=== PATIENT | female | born 1950 | race African-American/Black ===

== ENCOUNTER 2017-02-06 19:56 | Emergency (ER) | payer MEDICARE, OTHER ==
--- NOTE | ~2017-02-06 | CR72 ---
[facility] A Service of [facility] RADIOLOGY TEXT RESULTS PATIENT: SHARMAINE BAZZI LOCATION: [facility] : 51 UNIT #: [id number] AGE: [address]: Mari Kent MD SEX: F ORDER DR: [id number] [facility] [address] [facility]. [place], [place] [address] [id number] MR#: [id number] #: [id number] NAME: SHARMAINE BAZZI : 1950 SEX: F STUDY DATE/TIME: 02/06/2017 22:23 UNIT: [facility] ROOM: STUDY DESCRIPTION: CR Chest Single View Portable Attending Physician: Mari Kent M.D. Ordering Physician: Tj Blackman M.D. Primary Care Physician: No Primary Care Physician MEDICAL IMAGING REPORT This report is preliminary unless electronic signature is present EXAM Single view chest INDICATIONS Shortness of air for 4 days. FINDINGS Single portable AP view of the chest compared to 10/07/2016 and 09/14/2016. Heart and mediastinal contours are normal. There is a calcified granuloma in the left mid lung. No pleural effusion. IMPRESSION No acute cardiopulmonary findings. Dictated by... Vinayak Hargrove M.D. THIS IS AN ELECTRONICALLY VERIFIED REPORT Vinayak Hargrove M.D. at 02/07/2017 11:15 PM RPKyle/jerilyn TD: 02/07/2017 03:32 JOB #: [id number] MEDICAL IMAGING REPORT Page 1 of 1 COPY
[~2017-02-06 19:56] MED LIST: ACETAMINOPHEN PO; ACETAMINOPHEN650 M4 PO; ADVAIR; ADVAIR 100-501 EAC1 IH; ADVAIR 100-501 EACH IH; ADVAIR 250-501 EACH IH; ADVAIR 500-501 EACH IH; ADVAIR 5001 DISK W/1 IH; ADVAIR INH; ADVIL200 M2 PO; AEROBID7 GM; ALBUTEROL 0.5ML INH; ALBUTEROL MININEB NEB; ALBUTEROL SULFATE; ALBUTEROL0.63 MG/3 IH; ALBUTEROL0.83 MG/ML IH; ALBUTEROL17 G1 IH; ALBUTEROL17 GM INH; ALBUTEROL17 GM NEB; ALBUTEROL2.5 MG/0.5 IH; ALBUTEROL20 ml INH; AMLODIPINE BESY10 MG PO; ASPIRIN EC81 M1 PO; ASPIRIN81 M2 PO; ASPIRIN81 MG PO; ATARAX PO; ATORVASTATIN CA10 MG PO; AUGMENTIN875 M1 PO; AUGMENTIN875 MG PO; AVALOX PO; AZITHROMYCIN250 MG PO; AZITHROMYCIN500 MG PO; BACTRIM DS TABL1 TA1 PO; BAYER CHEWABLE81 MG PO; BENZONATATE PO; BLOOD PRESSURE PILL; BREO ELLIPTA I1 EACH INH; CARDIZEM CD PO; CARDIZEM CD180 M2 PO; CARDIZEM CD240 M1 PO; CARDIZEM CD240 M2 PO; CARDIZEM CD240 MG PO; CLARITIN10 M2 PO; COMBIVENT INH14.7 G1 IH; COMBIVENT INH14.7 GM; COMBIVENT INH14.7 GM INH; COMBIVENT MININEB INH; COMBIVENT RESPIM4 GM IH; COMBIVENT U/D3 M2 INH; COMBIVENT U/D3 ML INH; COMBIVENT14.7 GM IH; COMBIVENT14.7 GM INH; DALIRESP PO; DELTASONE20 MG PO; DILTIAZEM 24HR120 MG PO; DILTIAZEM 24HR180 M1 PO; DILTIAZEM 24HR180 MG PO; DOXYCYCLINE HY100 M1 PO; DOXYCYCLINE PO; DOXYCYCLINE150 MG PO; DUONEB 2.5-0.5 M3 ML; DUONEB 2.5-0.5 M3 ML NEB; FLEXERIL PO; FLEXERIL10 M1 PO; FLONASE 0.05% N16 G1; FLONASE 0.05% N16 GM NS; FLONASE16 GM; FLORASTOR250 M1 PO; FLOVENT HFA12 GM; FLOVENT HFA12 GM INH; GLUCOPHAGE500 MG PO; HUMIBID-LA600 MG PO; HYDROCHLOROTH12.5 M1 PO; IBUPROFEN400 MG PO; IPRATR-ALBUTEROL3 ML INH; KROGER PHARMACY; LASIX20 MG PO; LEVAQUIN PO; LEVAQUIN750 M1 PO; LEVAQUIN750 MG PO; LIPITOR PO; LISINOPRIL PO; LISINOPRIL10 MG PO; LISINOPRIL20 MG PO; LISINOPRIL30 MG PO; LORATADINE PO; LORTAB 10-5001 EACH PO; LORTAB 5/500 TA1 TA1 PO; MEDROL DOSEPAK4 MG DOB; MEDROL DOSEPAK4 MG PO; MEDROL PO; MEDROL4 MG/DOSE- PO; METFORMIN HCL500 M1 PO; MOBIC PO; MORGIDOX100 MG PO; MOTRIN400 MG PO; MOTRIN600 MG PO; NILSTAT1 ML PO; NORCO 5/325 TAB1 TAB PO; NORVASC PO; NORVASC10 MG PO; ORAPRED ODT10 MG PO; ORUDIS75 M1 PO; PHARMACY; PHENERGAN DM1 ML PO; POLYTRIM EYE DR10 ML OP; PREDNISOLO15 MG/5 M1 PO; PREDNISOLONE5 MG PO; PREDNISONE PO; PREDNISONE10 MG PO; PREDNISONE10 MG/DOSE PO; PREDNISONE50 MG PO; PRILOSEC PO; PRINIVIL20 M1 PO; PROVENTIL INH0.5 ML HHN; ROBITUSSIN A-C S5 ML PO; SALINE NOSE SPR45 M1 NS; SINGULAIR PO; SKELAXIN PO; SPIRIVA HANDIHALER; SPIRIVA18 MCG INH; STERAPRED5 MG/DOSE1 PO; SYMBICORT 16010.2 GM INH; TAMIFLU75 M1 PO; TESSALON200 MG PO; TRIAMCINOLONE AC1 GM EXT; ULTRAM PO; VIBRAMYCIN100 M1 PO; VICODIN 5/1 TAB 5/50 PO; VICODIN 5/500 T1 TAB PO; VICODIN PO; VOLTAREN75 MG PO; Z-PACK PO; ZITHROMAX PO; ZITHROMAX1 G/PKT PO; ZITHROMAX500 MG PO; [UNRECOGNIZED DRUG - OTHER]; [UNRECOGNIZED DRUG - REMARK]
[2017-02-06 21:56] LABS: BASOPHIL# 0.1 X10e3 (0-0.3); EOSINOPHIL# 0.3 X10e3 (0-0.7); EOSINOPHIL% 4.9 % (0.0-7.0); HEMATOCRIT 45.7 % (35.0-45.0); HEMOGLOBIN 14.6 gm/dL (12.0-16.0); LYMPHOCYTE# 2.3 X10e3 (1.0-3.5); MEAN CELL VOLUME 95.3 FL (83-96); MEAN CORPUSCULAR HEMOGLOBIN 30.5 PG (28-34); MEAN PLATELET VOLUME 9.3 FL (6.5-11.5); MONOCYTE# 0.7 X10e3 (0-1.0); MONOCYTE% 9.8 % (3.0-12.0); NEUTROPHIL# 3.5 X10e3 (1.5-7.1); NEUTROPHIL% 51.3 % (40-75); PLATELET COUNT 265 X10e3 (140-420); RED CELL DISTRIBUTION WIDTH 13.6 % (11.0-15.5); WHITE BLOOD COUNT 6.9 X10e3 (4.0-10.5)
[2017-02-06 21:57] LABS: DIFF IND NO
[2017-02-06 22:01] LABS: POC - CKMB <1.0 ng/mL (0.0-7.9); POC - TROPONIN <0.05 ng/mL (<=0.05)
[2017-02-06 22:19] LABS: BILIRUBIN, DIRECT 0.2 mg/dL (0.0-0.2); BILIRUBIN,INDIRECT 0.1 mg/dL (0.0-0.9); BILIRUBIN,TOTAL 0.3 mg/dL (0.2-2.0); BUN/CREATININE RATIO 21.11; CALCIUM SERUM 9.3 mg/dL (8.4-10.2); CREATININE SERUM 0.9 mg/dL (0.6-1.4); GLOM FILT RATE Estimated 77.8 mL/min (>60); POTASSIUM 4.4 mmol/L (3.5-5.1); PROTEIN TOTAL SERUM 7.2 g/dL (6.0-8.3)
== END 2017-02-07 02:10 | disposition left against medical advice (07) ==
LOC: CED 19:56
PROVIDERS: Emergency Medicine
DX: Z53.21 Procedure and treatment not carried out due to patient leaving prior to being seen by health care provider (principal)
CPT/HCPCS: 71010; 80048; 80076; 82553; 84484; 85025; 85730

== ENCOUNTER 2017-03-06 06:22 | Inpatient (IN) | payer MEDICARE, OTHER ==
--- NOTE | ~2017-03-06 | CT16 ---
[facility] A Service [facility] RADIOLOGY TEXT RESULTS PATIENT: SHARMAINE BAZZI LOCATION: [place] [address] : 51 UNIT #: [id number] AGE: [address]: Arcenio Reyes MD SEX: F ORDER DR: [id number] [facility] [address] [facility]. [place], [place] [address] [id number] E MR#: [id number] Acc #: [id number] NAME: SHARMAINE BAZZI : 1950 SEX: F STUDY DATE/TIME: 03/06/2017 9:45 UNIT: [facility] ROOM: STUDY DESCRIPTION: CT Angio Chest for PE Attending Physician: Mari Kent M.D. Ordering Physician: Mari Kent M.D. Primary Care Physician: No Primary Care Physician MEDICAL IMAGING REPORT This report is preliminary unless electronic signature is present EXAM CT angio of the chest with contrast, pulmonary embolism protocol. DATE: 03/06/2017 at 09:45 HISTORY Left side chest pain, shortness breath for 2 days. Elevated D-dimer 1015. COPD. Hypertension. Diabetes. COMPARISON CTA chest PE protocol 07/21/2016. PROCEDURE 2 mm axial images through the chest after IV contrast administration. 3-D coronal MIP reformatted images were obtained. FINDINGS The quality of the study is good. There is no pulmonary embolism. There is no thoracic aortic aneurysm or dissection. Heart size is within normal limits. No pericardial effusion, pleural effusion or pleural effusion. Mildly prominent AP window lymph node measuring 1 cm short axis is unchanged from 07/21/2016. Mildly prominent right hilar lymph node measures smaller than on the previous study, 8 mm short axis today, 10 mm previously. Mild centrilobular emphysematous changes are present. Tree-in-bud nodular densities are present within the left upper lobe. There is mild bronchial wall thickening in the bilateral lower lobe. Faint tree-in-bud nodular densities within the medial left lower lobe. No dense lung consolidations. Mild cylindrical bilateral lower lobe and bilateral upper lobe bronchiectasis. [facility] A Service [facility] RADIOLOGY TEXT RESULTS PATIENT: SHARMAINE BAZZI LOCATION: [place] [address] : 51 UNIT #: [id number] AGE: [address]: Arcenio Reyes MD SEX: F ORDER DR: Benign calcified granuloma in the left lower lobe and the left hilum. Left renal cyst. Remainder of the included upper abdominal organs are within normal limits. IMPRESSION 1. Tree-in-bud nodular densities are demonstrated throughout the left lung, greatest in the left upper lobe, favored to represent a small airways infectious - inflammatory change. There is mild cylindrical bronchiectasis and bronchial wall thickening in both lungs. The bronchial wall thickening is greatest in the bilateral lower lobes. Correlate for bronchitis symptoms. 2. Mild centrilobular emphysema. 3. Mildly prominent AP window lymph node is stable since 07/21/16. It is favored to represent benign reactive finding. 4. No pulmonary embolism, aortic aneurysm or aortic dissection. Dictated by... Bonnie Rodriguez M.D. THIS IS AN ELECTRONICALLY VERIFIED REPORT Bonnie Rodriguez M.D. at 03/09/2017 1:22 PM MOSHE/martha TD: 03/06/2017 12:10 JOB #: [id number] MEDICAL IMAGING REPORT Page 1 of 1 COPY
--- NOTE | ~2017-03-06 | EKG ---
PATIENT: SHARMAINE BAZZI UNIT #: [id number] Ventricular Rate: 97 BPM Atrial Rate: 97 BPM P-R Interval: 182 ms QRS Duration: 82 ms Q-T Interval: 352 ms QTC Calculation(Bezet): 447 ms P [place]: 64 degrees Calculated R [place]: 42 degrees Calculated T [place]: 49 degrees Diagnosis Line: Normal sinus rhythm Diagnosis Line: nonspecific ST-T wave changes Diagnosis Line: When compared with ECG of 07-OCT-2016 00:56, Diagnosis Line: No significant change was found Diagnosis Line: Confirmed by STEF PEDERSON MD ([id number]) on Diagnosis Line: 03/06/2017 4:16:09 PM INTERPRETING MD: TORI
--- NOTE | ~2017-03-06 | HP ---
Unit #: [id number] #: [id number] Patient: JULIANA SANCHEZ [id number] [address] [address] [id number] I MR#: [id number] NAME: JULIANA SANCHEZ ROOM: 553 Age: 66 Sex: F Admission Date: 03/06/2017 : 1950 Attending Physician: Arcenio Reyes M.D. Primary Care Physician: Primary Care Physician No HISTORY AND PHYSICAL ADMISSION DIAGNOSES 1. Acute exacerbation of chronic obstructive pulmonary disease. 2. Bronchitis. 3. Hypertension. 4. Chronic pain. 5. Diabetes. HISTORY OF PRESENT ILLNESS Ms. Juliana Sanchez is a 66-year-old female with past medical history of COPD, hypertension, chronic pain and diabetes who comes to the emergency room with the complaints of increasing shortness of air, dyspnea since early this morning. She tells me that it felt like her throat was closing up and she was not able to take a good breath. She was found hypoxemic despite the breathing treatments in the emergency room, therefore, patient is being admitted. She otherwise denies any chest pain, headache, dizziness, syncope, fever, chills, nausea, vomiting, diarrhea, abdominal pain. REVIEW OF SYSTEMS Twelve-point review of systems on this patient is basically negative except as above. PAST MEDICAL HISTORY Significant for: 1. History of COPD. 2. Hypertension. 3. Chronic pain. 4. Diabetes. PAST SURGICAL HISTORY Significant for: 1. Cardiac catheterization in the past. 2. Bilateral knee replacement. 3. Hip surgery. HOME MEDICATIONS Include: 1. Atrovent. 2. Ventolin. 3. Combivent. 4. Singulair. 5. Flonase. 6. Proventil. 7. Zestril. Unit #: [id number] #: [id number] Patient: JULIANA SANCHEZ 8. Aspirin. ALLERGIES 1. Bactrim. 2. Vancomycin. 3. Biaxin. 4. Sulfa drugs. SOCIAL HISTORY Denies any tobacco, alcohol, or illicit drugs. FAMILY HISTORY Unremarkable. PHYSICAL EXAMINATION VITAL SIGNS: BP 160/85, heart rate 84, respirations 20, temperature 97.9. GENERAL: The patient is 66-year-old female in no acute distress. HEENT: Head is atraumatic. Pupils equal, round, reactive to light and accommodation. Extraocular muscles are intact. Oropharynx is clear. NECK: Supple. No mass, no JVD, no bruits. LUNGS: Diminished bilaterally with some mild expiratory wheezing. HEART: S1, S2. No murmurs. ABDOMEN: Soft, nontender, nondistended. LOWER EXTREMITIES: Without any significant cyanosis, clubbing, or edema. NEUROLOGIC: Grossly intact without any focal deficits. DIAGNOSTIC STUDIES LABORATORY: Chemistry unremarkable. Blood glucose was 145. Set of cardiac enzymes negative. Hematology unremarkable. IMAGING: Chest x-ray on admission shows no acute findings. Benign calcified granulomatous changes. CT angio showed tree-in-bud nodular densities, demonstrated throughout the left lung, favored to represent a small airways infection inflammatory changes. Bronchiectasis and bronchial wall thickening. Centrilobular emphysema. ASSESSMENT AND PLAN 1. Acute exacerbation of COPD. Continue bronchodilators, IV steroids, Pulmonary to follow. 2. Questionable bronchitis. Started on IV Levaquin. Will defer to Pulmonology. 3. Hypertension. Resume home Zestril. Consider adding hydrochlorothiazide. 4. History of diabetes in the past. She was not taking any anti-diabetes medicine at home. This is most likely steroid-induced hyperglycemia. Will check hemoglobin A1c. 5. Continue with GI and DVT prophylaxis with Protonix and Lovenox. Dictated by Arcenio Reyes M.D. Unit #: [id number] #: [id number] Patient: JULIANA SANCHEZ OC/stephany TD: 03/06/2017 21:36 JOB #: [id number] HISTORY AND PHYSICAL Page 1 of 1 X Arcenio Reyes MD HISTORY AND PHYSICAL
--- NOTE | ~2017-03-06 | EKG ---
PATIENT: SHARMAINE BAZZI UNIT #: [id number] Ventricular Rate: 98 BPM Atrial Rate: 98 BPM P-R Interval: 174 ms QRS Duration: 78 ms Q-T Interval: 356 ms QTC Calculation(Bezet): 454 ms P [place]: 68 degrees Calculated R [place]: 34 degrees Calculated T [place]: 69 degrees Diagnosis Line: Sinus rhythm with Premature atrial complexes Diagnosis Line: nonspecific ST-T wave changes. Diagnosis Line: Poor baseline Diagnosis Line: No previous ECGs available Diagnosis Line: Confirmed by STEF PEDERSON MD ([id number]) on Diagnosis Line: 03/06/2017 4:15:15 PM INTERPRETING MD: TORI
--- NOTE | ~2017-03-06 | BMI ---
[facility] Nutrition Therapy DATE: 03/07/17 Patient: SHARMAINE BAZZI Physician: SAIRA Address: [address] [place] [address] Room/Bed: [address] [place] [address], Zip: [place] [address] Admit Date: 03/06/17 Date of : 52 Height: Weight: 210 95.66 HIGH BMI NOTE: DX: 66 Y.O. FEMALE ADMITTED FOR COPD EXAC, BRONCHITIS ANTHROPOMETRICS: 5'1", WT: 210# (95 KG), BMI: 40 DIET: CONSISTENT CARBOHYDRATE + HEALTHY HEART RECOMMENDATIONS: 1. RECOMMEND TO CONTINUE CURRENT DIET ORDER ABOVE TO PROMOTE GRADUAL WEIGHT LOSS TOWARDS HEALTHY BMI (19.0-25.0) OR +/-10%IBW RD WILL F/U PER PROTOCOL Respectfully, CECILE STAFFORD MS, RD, LD Food and Nutritional Services [facility] cc: client file
--- NOTE | ~2017-03-06 | DS ---
Unit #: [id number] #: [id number] Patient: JULIANA SANCHEZ [id number] [address] [address] [id number] I MR#: [id number] NAME: JULIANA SANCHEZ ROOM: 553 Age: 66 Sex: F Admission Date: 03/06/2017 : 1950 Discharge Date: 03/09/2017 Attending Physician: Arcenio Reyes M.D. Primary Care Physician: No Primary Care Physician DISCHARGE SUMMARY FINAL DIAGNOSES 1. Acute on chronic exacerbation of chronic obstructive pulmonary disease. 2. Acute bronchitis. 3. History of hypertension. 4. History of diabetes mellitus type 2. 5. History of chronic pain. DISCHARGE MEDICATIONS 1. Levaquin 750 mg daily for four days. 2. Aspirin 81 mg daily. 3. Singulair 10 mg daily. 4. Zestril 20 mg daily. 5. Cartia 240 mg b.i.d. which is a home dose. 6. Flonase nasal spray daily. 7. Prednisone tapering dose 40 mg b.i.d. for four days, 40 mg daily for four days. After that, decrease 10 mg every four days until off. 8. Continue nebulizer treatment at home. 9. Continue Spiriva at home. CONSULTATION DURING HOSPITALIZATION Dr. Oracio Wise from pulmonary services. DIAGNOSTIC STUDIES LABORATORY: Lab workup on discharge: WBC 13, hemoglobin 14.2, hematocrit 44.9, and platelet count 268,000. Sodium 141, potassium 4.4, chloride 103, BUN 22, creatinine 0.7. Magnesium 2.4. Glucose 124. Hemoglobin A1c 6.2. Lactic acid 1.1. BNP 6. IMAGING: Significant radiological studies done during hospitalization were: Chest x-ray which showed no acute chest finding. CTA of the chest was done which showed tree-in-bud nodular densities are demonstrated throughout the left lung, greatest in the left upper lobe, favored to represent a small airway infection, inflammatory changes. Mild centrilobular emphysema is present. Mildly prominent AP window lymph node is stable since July 21, 2016, most likely benign reactive finding. No pulmonary embolism seen. HOSPITAL COURSE Ms. Juliana Sanchez is a 66-year-old female who was admitted by my colleague, Dr. Reyes, with shortness of breath exertional and chest tightness. She felt like her throat was closing up. She was found to be hypoxemic and was admitted to [facility] for acute Unit #: [id number] #: [id number] Patient: YOUNG,JULIANA exacerbation of COPD. Patient was treated with IV Solu-Medrol, IV Levaquin, nebulizer treatment. Home medications were continued. Patient's diabetes is very well controlled with hemoglobin A1c of 6.2. Patient is doing well at this time and is being discharged home. PHYSICAL EXAMINATION ON DISCHARGE VITAL SIGNS: Blood pressure 136/71, respiratory rate 18, pulse 84, temperature 98.3, oxygen saturation is 97%. HEENT: Head is normocephalic. CHEST: Decreased air entry bilaterally. CARDIOVASCULAR: S1, S2 positive. Regular rhythm. ABDOMEN: Soft. DISCHARGE INSTRUCTIONS 1. Patient is being discharged home in stable condition. 2. Medications as per med rec. 3. Followup primary care provider in one week. 4. Followup with Dr. Oracio Wise as scheduled. Dictated by... Rufino Hartley TD: 03/10/2017 08:57 JOB #: [id number] DISCHARGE SUMMARY Page 1 of 1 X Luh Morin MD X DISCHARGE SUMMARY
--- NOTE | ~2017-03-06 | CR72 ---
[facility] A Service [facility] RADIOLOGY TEXT RESULTS PATIENT: SHARMAINE BAZZI LOCATION: [facility] UNIT : 51 UNIT #: [id number] AGE: [address]: Mari Kent MD SEX: F ORDER DR: [id number] [facility] [address] [place], [place] [address] [id number] E MR#: [id number] Acc #: [id number] NAME: SHARMAINE BAZZI : 1950 SEX: F STUDY DATE/TIME: 03/06/2017 7:55 UNIT: [facility] ROOM: STUDY DESCRIPTION: CR Chest Single View Portable Attending Physician: Mari Kent M.D. Ordering Physician: Mari Kent M.D. Primary Care Physician: No Primary Care Physician MEDICAL IMAGING REPORT This report is preliminary unless electronic signature is present EXAM AP portable chest DATE 03/06/2017 HISTORY Shortness breath this morning. Diabetes. Asthma. Bronchitis. COPD. Hypertension. COMPARISON AP portable chest 02/06/2017. FINDINGS No acute airspace disease. Benign calcified granulomas changes in both lungs. Heart size within normal limits. No pleural effusion. No pneumothorax. No acute osseous abnormality. IMPRESSION 1. No acute chest findings. 2. Benign calcified granulomatous changes. 3. No significant change compared to 02/06/2017. Dictated by... Bonnie Rodriguez M.D. THIS IS AN ELECTRONICALLY VERIFIED REPORT Bonnie Rodriguez M.D. at 03/06/2017 11:45 AM [facility]/yimi TD: 03/06/2017 09:39 JOB #: [id number] [facility] A Service [facility] RADIOLOGY TEXT RESULTS PATIENT: SHARMAINE BAZZI LOCATION: [facility] UNIT : 51 UNIT #: [id number] AGE: [address]: Mari Kent MD SEX: F ORDER DR: MEDICAL IMAGING REPORT Page 1 of 1 COPY
--- NOTE | ~2017-03-06 | CR72 ---
[facility] A Service of [facility] RADIOLOGY TEXT RESULTS PATIENT: SHARMAINE BAZZI LOCATION: [place] [address] : [birth year] UNIT #: [id number] AGE: [address]: Arcenio Reyes MD SEX: F ORDER DR: [id number] [facility] [address] [place], [place] [address] [id number] I MR#: [id number] #: [id number] NAME: SHARMAINE BAZZI : 1950 SEX: F STUDY DATE/TIME: 03/09/2017 5:38 UNIT: [facility] ROOM: [facility] STUDY DESCRIPTION: CR Chest Single View Portable Attending Physician: Arcenio Reyes M.D. Ordering Physician: Oracio Wise M.D. Primary Care Physician: Primary Care Physician No MEDICAL IMAGING REPORT This report is preliminary unless electronic signature is present EXAM AP portable chest 03/09/2017 HISTORY Shortness breath with left-side chest pain since 03/06/2017. Diabetes. Asthma. Hypertension. COMPARISON AP portable chest 03/06/2017. FINDINGS No acute airspace disease. Benign calcified granulomatous changes in the left mid lung. Stable heart size, within normal limits. No pleural effusion or pneumothorax. Stable mild asymmetric elevation right hemidiaphragm. IMPRESSION 1. No acute chest findings. 2. Benign calcified granulomatous changes. 3. No significant change compared to 03/06/2017. Dictated by... Bonnie Rodriguez M.D. THIS IS AN ELECTRONICALLY VERIFIED REPORT Bonnie Rodriguez M.D. at 03/10/2017 2:00 PM [facility]/autumn TD: 03/09/2017 11:16 JOB #: [id number] MEDICAL IMAGING REPORT [facility] A Service [facility] RADIOLOGY TEXT RESULTS PATIENT: SHARMAINE BAZZI LOCATION: [place] [address] : [birth year] UNIT #: [id number] AGE: [address]: Arcenio Reyes MD SEX: F ORDER DR: Page 1 of 1 COPY
[2017-03-06 08:01] LABS: POC - CKMB <1.0 ng/mL (0.0-7.9); POC - TROPONIN <0.05 ng/mL (<=0.05)
[2017-03-06 08:13] LABS: BASOPHIL% 0.6 % (0-2.5); EOSINOPHIL# 0.3 X10e3 (0-0.7); EOSINOPHIL% 6.3 % (0.0-7.0); HEMATOCRIT 43.6 % (35.0-45.0); HEMOGLOBIN 14.2 gm/dL (12.0-16.0); LYMPHOCYTE# 2.1 X10e3 (1.0-3.5); MEAN CELL VOLUME 94.6 FL (83-96); MEAN CORPUSCULAR HEMOGLOBIN 30.8 PG (28-34); MEAN CORPUSCULAR HGB CONC 32.5 g/dL (30-36); MEAN PLATELET VOLUME 9.4 FL (6.5-11.5); MONOCYTE# 0.4 X10e3 (0-1.0); MONOCYTE% 8.6 % (3.0-12.0); NEUTROPHIL# 2.3 X10e3 (1.5-7.1); NEUTROPHIL% 44.5 % (40-75); PLATELET COUNT 264 X10e3 (140-420); RED BLOOD COUNT 4.61 X10e (3.90-5.30); WHITE BLOOD COUNT 5.2 X10e3 (4.0-10.5)
[2017-03-06 08:22] LABS: DIFF IND NO
[2017-03-06 08:28] LABS: BUN/CREATININE RATIO 22.5; CALCIUM SERUM 9.1 mg/dL (8.4-10.2); CREATININE SERUM 0.8 mg/dL (0.6-1.4); GLOM FILT RATE Estimated 89.7 mL/min (>60); POTASSIUM 3.5 mmol/L (3.5-5.1)
[2017-03-06 09:58] LABS: POC - CKMB <1.0 ng/mL (0.0-7.9); POC - TROPONIN <0.05 ng/mL (<=0.05)
[2017-03-06] MEDS ORDERED: PATIENT'S PHARMACY (10:42)
[2017-03-06] MEDS ORDERED: ATROVENT HFA12.9 G1 INH (10:42)
[2017-03-06] MEDS ORDERED: ALBUTEROL17 GM INH (10:42)
[2017-03-06] MEDS ORDERED: ALBUTEROL 0.5ML NEB (10:43)
[2017-03-06] MEDS ORDERED: FLONASE 0.05% N16 G1 (10:43)
[2017-03-06] MEDS ORDERED: SINGULAIR PO (10:43)
[2017-03-06] MEDS ORDERED: COMBIVENT RESPIM4 GM INH (10:43)
[2017-03-06] MEDS ORDERED: LISINOPRIL PO (10:44)
[2017-03-06] MEDS ORDERED: ASPIRIN81 M2 PO (10:44)
[2017-03-06] MEDS ORDERED: CARTIA XT240 M1 PO (13:21)
[2017-03-07 08:54] LABS: HEMATOCRIT 46.2 % (35.0-45.0); HEMOGLOBIN 14.8 gm/dL (12.0-16.0); LYMPHOCYTE# 0.8 X10e3 (1.0-3.5); LYMPHOCYTE% 6.4 % (17.0-45.0); MEAN CELL VOLUME 94.9 FL (83-96); MEAN CORPUSCULAR HEMOGLOBIN 30.5 PG (28-34); MEAN CORPUSCULAR HGB CONC 32.1 g/dL (30-36); MEAN PLATELET VOLUME 9.2 FL (6.5-11.5); MONOCYTE# 0.1 X10e3 (0-1.0); MONOCYTE% 0.7 % (3.0-12.0); NEUTROPHIL# 11.7 X10e3 (1.5-7.1); NEUTROPHIL% 92.9 % (40-75); PLATELET COUNT 282 X10e3 (140-420); RED BLOOD COUNT 4.87 X10e (3.90-5.30); RED CELL DISTRIBUTION WIDTH 13.1 % (11.0-15.5)
[2017-03-07 08:58] LABS: DIFF IND NO; WHITE BLOOD COUNT 12.6 X10e3 (4.0-10.5)
[2017-03-07 09:10] LABS: CALCIUM SERUM 9.3 mg/dL (8.4-10.2); CREATININE SERUM 0.7 mg/dL (0.6-1.4); GLOM FILT RATE Estimated 105.4 mL/min (>60); POTASSIUM 3.4 mmol/L (3.5-5.1)
[2017-03-09 06:10] LABS: BUN/CREATININE RATIO 31.42; CALCIUM SERUM 9.2 mg/dL (8.4-10.2); CREATININE SERUM 0.7 mg/dL (0.6-1.4); GLOM FILT RATE Estimated 105.4 mL/min (>60); MAGNESIUM 2.4 mg/dL (1.6-3.0); POTASSIUM 4.4 mmol/L (3.5-5.1)
[2017-03-09 06:20] LABS: HEMATOCRIT 44.9 % (35.0-45.0); HEMOGLOBIN 14.2 gm/dL (12.0-16.0); MEAN CELL VOLUME 95.8 FL (83-96); MEAN CORPUSCULAR HEMOGLOBIN 30.2 PG (28-34); MEAN CORPUSCULAR HGB CONC 31.6 g/dL (30-36); MEAN PLATELET VOLUME 9.4 FL (6.5-11.5); RED BLOOD COUNT 4.69 X10e (3.90-5.30); RED CELL DISTRIBUTION WIDTH 13.5 % (11.0-15.5)
[2017-03-09] MEDS ORDERED: LEVAQUIN750 MG PO (10:53)
[2017-03-09] MEDS ORDERED: PREDNISONE10 MG (10:55)
== END 2017-03-09 12:13 | disposition home or self-care (01) | DRG 192 ==
LOC: CED 06:22 → CEDOF 11:07 → CED 11:21 → CEDOF 11:21 → C5B 14:56
PROVIDERS: Emergency Medicine; Hospitalist; Internal Medicine
PROC: B32TYZZ Computerized Tomography (CT Scan) of Left Pulmonary Artery using Other Contrast (ICD-10-PCS; principal; 2017-03-06)
PROC: B32SYZZ Computerized Tomography (CT Scan) of Right Pulmonary Artery using Other Contrast (ICD-10-PCS; 2017-03-06)
DX: J44.1 Chronic obstructive pulmonary disease with (acute) exacerbation (principal); E11.65 Type 2 diabetes mellitus with hyperglycemia; I10 Essential (primary) hypertension; J44.0 Chronic obstructive pulmonary disease with (acute) lower respiratory infection; J20.9 Acute bronchitis, unspecified; G89.29 Other chronic pain; R09.02 Hypoxemia; Z96.653 Presence of artificial knee joint, bilateral; Z88.1 Allergy status to other antibiotic agents; Z88.2 Allergy status to sulfonamides; Z79.82 Long term (current) use of aspirin
CPT/HCPCS: 36415; 71010; 71275; 80048; 82308; 82553; 82947; 83036; 83605; 83735; 83880; 84484; 85025; 85027; 85379; 87040; 87633; 93005; 94640; 94760; 96374; 99291; J1650; J1815; J1956; J2930; Q9967

== ENCOUNTER 2017-05-29 18:23 | Inpatient (IN) | payer MEDICARE, OTHER ==
[~2017-05-29] VITALS: Ht 154.9 cm; Wt 96.6 kg
--- NOTE | ~2017-05-29 | BMI ---
[facility] Nutrition Therapy DATE: 05/30/17 Patient: SHARMAINE BAZZI Physician: ELIN Address: [address] [place] [address] Room/Bed: [address] [place] [address], Zip: [place] [address] Admit Date: 05/29/17 Date of : [birth year] Height: 5 1 Weight: 212 96.61 HIGH BMI NOTE: DX: 66 Y.O. FEMALE ADMITTED FOR COPD EXAC ANTHROPOMETRICS: 5'1", WT: 212# (96 KG), BMI: 40.1 DIET: REGULAR RECOMMENDATIONS: 1. RECOMMEND TO CHANGE CURRENT DIET ORDER TO HEALTHY HEART + CONSISENT CARBOHYDRATE TO PROMOTE GRADUAL WEIGHT LOSS TOWARDS HEALTHY BMI (19.0-25.0) OR +/-10%IBW RD WILL F/U PER PROTOCOL Respectfully, CECILE STAFFORD MS, RD, LD Food and Nutritional Services [facility] cc: client file
--- NOTE | ~2017-05-29 | DS ---
Unit #: [id number] #: [id number] Patient: JULIANA SANCHEZ [id number] [address] [address] [id number] I MR#: [id number] NAME: JULIANA SANCHEZ ROOM: 226 Age: 66 Sex: F Admission Date: 05/29/2017 : 1950 Discharge Date: 06/02/2017 Attending Physician: Pradip Lipscomb M.D. Primary Care Physician: Luh Morin M.D. DISCHARGE SUMMARY FINAL DIAGNOSES 1. Acute exacerbation of chronic obstructive pulmonary disease. 2. Bronchitis. 3. Leukocytosis, most likely secondary to steroid. 4. Elevated D-dimer with pulmonary embolism ruled out. 5. Acute hypoxic respiratory failure, which is resolved. 6. Hypertension. 7. Diabetes mellitus type 2. 8. Morbid obesity. 9. Former smoker. DISCHARGE MEDICATIONS Prednisone tapering dose; Dulera 200/5 two puffs b.i.d.; Glucophage 500 mg b.i.d.; glucometer, Chem strips, lancets, alcohol swab to check blood sugar b.i.d.; Ventolin inhaler q.i.d. p.r.n., nebulizer treatment at home p.r.n.; Tylenol 650 q.6h p.r.n.; Zestril 20 mg daily; Cardizem CD 240 mg b.i.d.; Singulair 10 mg daily, aspirin 81 mg daily. Please note, the patient received Levaquin 750 mg during hospitalization that is being discontinued. CONSULTATION DURING HOSPITALIZATION Dr. Andre from Pulmonary Services. DIAGNOSTIC STUDIES LABORATORY RESULTS: Lab workup on discharge; sodium 138, potassium 4.3, chloride 104, BUN 25, creatinine 0.7, calcium 8.9. WBC 16.8, hemoglobin 13.2, hematocrit 40.2, and platelet count of 235. Blood culture is no growth. Hemoglobin A1c 6.2. BNP on admission was 17. Procalcitonin less than 0.05. IMAGING STUDIES: Ultrasound of bilateral lower extremity showed negative DVT. CTA of the chest was done to rule out PE and that was ruled out. The patient does have emphysema. There was a minimal left upper lobe infiltrate, may need to repeat chest x-ray PA and lateral in 6 weeks or so. HOSPITAL COURSE Ms. Juliana Sanchez is a 66-year-old female, who was admitted with shortness of breath and chest tightness. The patient was diagnosed with acute COPD exacerbation and bronchitis. She was treated with IV Solu-Medrol, IV antibiotics, and bronchodilators. The patient also had elevated D-dimer, and PE and DVT were ruled out. The patient is doing much better at this time. Dr. Andre was involved in the patient's care. She is being discharged home. Unit #: [id number] #: [id number] Patient: JULIANA SANCHEZ During hospitalization, the patient's sugars have been very much elevated. The patient does have diet-controlled diabetes mellitus, but we are going to start on metformin at this time. The patient has been advised to check blood sugar b.i.d. and bring the log back to us. She verbalizes understanding. DISCHARGE PHYSICAL EXAMINATION VITAL SIGNS: Blood pressure is 118/55, respiratory rate 20, pulse is 80, temperature 98.1, oxygen saturation is 95%. CHEST: Fair air entry. Wheezing is heard bilateral. CVS: Regular rhythm. ABDOMEN: Soft. EXTREMITIES: Negative edema. DISCHARGE INSTRUCTIONS 1. Follow up primary care provider in 1 week. 2. Check blood sugar at home b.i.d. 3. CBC to be repeated in 1 week to evaluate leukocytosis, which is most likely secondary to steroid. Dictated by... Rufino Hartley/an TD: 06/04/2017 14:11 JOB #: [id number] DISCHARGE SUMMARY Page 1 of 1 X Luh Morin MD X DISCHARGE SUMMARY
--- NOTE | ~2017-05-29 | CT16 ---
[facility] A Service of [facility] RADIOLOGY TEXT RESULTS PATIENT: SHARMAINE BAZZI LOCATION: [facility] 226-01 : 51 UNIT #: [id number] AGE: [address]: Pradip Lipscomb MD SEX: F ORDER DR: [id number] [facility] [address] [place], [place] [address] [id number] I MR#: [id number] Acc #: [id number] NAME: SHARMAINE BAZZI : 1950 SEX: F STUDY DATE/TIME: 05/29/2017 21:48 UNIT: [facility] ROOM: [facility] STUDY DESCRIPTION: CT Angio Chest for PE Attending Physician: Pradip Lipscomb M.D. Ordering Physician: Mari Kent M.D. Primary Care Physician: Luh Morin M.D. MEDICAL IMAGING REPORT This report is preliminary unless electronic signature is present EXAM Chest CTA, 05/29, at 21:48. INDICATIONS Worsening shortness of air over the last 3 days with wheezing and chest tightness. Elevated white blood cell count. Elevated D-dimer. TECHNIQUE Axial images were obtained through the chest following IV contrast administration. 3-D reformats were obtained. This CT exam was performed with one or more of the following radiation dose reduction techniques: automatic exposure control, adjustment of mA and/or kV according to patient size, and iterative reconstruction. COMPARISON Comparison made with 03/06/2017. FINDINGS There is no pulmonary embolism or aortic dissection. There is no pleural or pericardial effusion. Borderline AP window node is stable to slightly improved. No other evidence for adenopathy. There is emphysema. There is dependent atelectasis in both lungs. Granuloma noted in the left lower lobe. Minimal subtle infiltrate is noted in the left upper lobe. Previously seen tree-in-bud infiltrates have resolved. Upper abdomen shows a left renal cyst. IMPRESSION 1. No pulmonary embolism or aortic dissection. 2. Emphysema. 3. Minimal left upper lobe infiltrate may reflect mild infection. Previously described tree-in-bud infiltrates have resolved. [facility] A Service of [facility] RADIOLOGY TEXT RESULTS PATIENT: SHARMAINE BAZZI LOCATION: [facility] 226- : 51 UNIT #: [id number] AGE: [address]: Pradip Lipscomb MD SEX: F ORDER DR: Dictated by... Grzegorz Swan Jr., M.D. THIS IS AN ELECTRONICALLY VERIFIED REPORT Grzegorz Swan Jr., M.D. at 05/30/2017 10:06 PM [facility]/rodolfo TD: 05/30/2017 20:26 JOB #: [id number] MEDICAL IMAGING REPORT Page 1 of 1 COPY
--- NOTE | ~2017-05-29 | EKG ---
PATIENT: SHARMAINE BAZZI UNIT #: [id number] Ventricular Rate: 105 BPM Atrial Rate: 105 BPM P-R Interval: 154 ms QRS Duration: 68 ms Q-T Interval: 328 ms QTC Calculation(Bezet): 433 ms P [place]: 64 degrees Calculated R [place]: 35 degrees Calculated T [place]: 59 degrees Diagnosis Line: Sinus tachycardia Diagnosis Line: Otherwise normal ECG Diagnosis Line: When compared with ECG of 26-MAY-2017 10:02, Diagnosis Line: No significant change was found Diagnosis Line: Confirmed by BOB MONK MD ([id number]) on 05/31/2017 Diagnosis Line: 11:02:14 PM INTERPRETING MD: ALESHIA PERSON
--- NOTE | ~2017-05-29 | CR72 ---
[facility] A Service of [facility] RADIOLOGY TEXT RESULTS PATIENT: SHARMAINE BAZZI LOCATION: A 226-01 : 51 UNIT #: [id number] AGE: [address]: Pradip Lipscomb MD SEX: F ORDER DR: [id number] [facility] [address] [facility]. [place], [place] [address] [id number] MR#: [id number] Acc #: [id number] NAME: SHARMAINE BAZZI : 1950 SEX: F STUDY DATE/TIME: 05/29/2017 19:02 UNIT: A ROOM: 226 STUDY DESCRIPTION: CR Chest Single View Portable Attending Physician: Pradip Lipscomb M.D. Ordering Physician: Mari Kent M.D. Primary Care Physician: Luh Morin M.D. MEDICAL IMAGING REPORT This report is preliminary unless electronic signature is present EXAM Portable chest HISTORY Chest pain for 3 days. COMPARISON STUDIES 05/26/2017. FINDINGS AP portable view of the chest is obtained. Heart size and vascularity are normal. Lungs are clear. Bones are unremarkable. IMPRESSION No active disease. Dictated by... Quinton Siddiqi M.D. THIS IS AN ELECTRONICALLY VERIFIED REPORT Quinton Siddiqi M.D. at 05/30/2017 7:57 PM FEL/pcl TD: 05/30/2017 16:10 JOB #: [id number] MEDICAL IMAGING REPORT Page 1 of 1 COPY
--- NOTE | ~2017-05-29 | CO ---
Unit #: [id number] #: [id number] Patient: JULIANA SANCHEZ [id number] [address] [place], [place] [address] [id number] I MR#: [id number] NAME: JULIANA SANCHEZ ROOM: 226 Age: 66 Sex: F Admission Date: 05/29/2017 : 1950 Attending Physician: Pradip Lipscomb M.D. Primary Care Physician: Luh Morin M.D. CONSULTATION REPORT We are asked to see her by Dr. Morin. Reason is exacerbation of COPD. HISTORY OF PRESENT ILLNESS Ms. Juliana Sanchez is a patient well known to us with COPD, who presents with shortness of air actually dating back to mid last month. She says about the of last month, she saw Dr. Morin and received steroid IM and then some pills and was not any better. I suspect she was better because she did not come back to the ER until about 4 days ago. In the ER, they gave her oral prednisone. She was not any better and came back through the emergency room last night. In reality, I happened to be in the emergency room last night and I listened to her and she really did have a fair amount of expiratory wheezes. She has a scant cough, which is completely nonproductive. She does not really complain of fever or chills. She quit smoking about 5 years ago. She does not have home oxygen. She did not really complain of chest pain so to speak, but she did complain of some chest tightness. PAST MEDICAL HISTORY Significant for heart catheterization in 2007. At that time, she had really very little disease, history of chronic pain syndrome, diabetes, hypertension, COPD as mentioned. PAST SURGICAL HISTORY Include bilateral knee replacement. MEDICATIONS On admission had included Atrovent HFA q.i.d., Ventolin 2 puffs q.i.d. or Combivent Respimat, Singulair 10 mg p.o. daily, Proventil mini nebs q.i.d., Zestril 20 mg p.o. daily, aspirin 81 mg p.o. daily, Cartia 240 mg p.o. b.i.d. ALLERGIES Cephalosporins, sulfa, clarithromycin, and vancomycin. SOCIAL HISTORY She did previously smoke, but she quit 5 years ago. FAMILY HISTORY Significant for lung disease in her mother, grandfather, grandmother, and a brother. REVIEW OF SYSTEMS Unit #: [id number] #: [id number] Patient: JULIANA SANCHEZ She very occasionally chokes, but it is almost always on hamburger. Otherwise, she says she swallows okay. She has had maybe a little bit of leg swelling. She has had no nausea, vomiting, or diarrhea. Appetite up until now has been okay. All other systems are negative except as mentioned. PHYSICAL EXAMINATION GENERAL: She presents as an older female in no acute distress. VITAL SIGNS: Temperature was 97.6, pulse 72, respirations 16, and blood pressure is 130/88. NECK: Without adenopathy. LUNGS: Reveals that her breathing is not labored. She had expiratory wheezes, which are mild bilaterally and actually I do not think they were prominent today as they were last night. HEART: Regular. ABDOMEN: Soft and bowel sounds are present. EXTREMITIES: Without edema. NEUROLOGIC: She is awake and alert. DIAGNOSTIC STUDIES IMAGING STUDIES: Chest CT viewed by me. I did not see a definite pulmonary embolism. She does have this nodular density in left upper lobe that I think is atypical nodular pneumonia. I have not seen the radiology report on this. LABORATORY RESULTS: White blood cell count was 11.3, H and H 14.4 and 43, platelets 240,000. Serum chemistries significant for a BUN of 26 and a creatinine of 1. Alkaline phosphatase was little elevated at 117. IMPRESSION 1. Acute exacerbation of chronic obstructive pulmonary disease. 2. Atypical pneumonia. PLAN I would treat her with IV steroids. I see she is on Levaquin and given her drug allergies, I think that it is probably a good idea because we do not have a lot of choices. She will definitely need repeat CAT scan in 3 months and I have discussed this with her. Thank you very much for allowing me to participate in the care of this patient. Dictated by... Patrice Andre M.D. RICARDO/an TD: 05/31/2017 03:49 JOB #: [id number] Unit #: [id number] #: [id number] Patient: JULIANA SANCHEZ CONSULTATION REPORT Page 1 of 1 X Patrice Andre MD CONSULTATION REPORT
--- NOTE | ~2017-05-29 | HP ---
Unit #: [id number] #: [id number] Patient: JULIANA SANCHEZ [id number] [address] [address] [id number] I MR#: [id number] NAME: JULIANA SANCHEZ ROOM: 226 Age: 66 Sex: F Admission Date: 05/29/2017 : 1950 Attending Physician: Pradip Lipscomb M.D. Primary Care Physician: Luh Morin M.D. HISTORY AND PHYSICAL CHIEF COMPLAINT Shortness of breath. HISTORY OF PRESENTING ILLNESS Ms. Juliana Sanchez, who has severe COPD, was seen in our office last month, was treated for COPD exacerbation. She got a little bit better but continued to get worse. Yesterday, she could not breathe. She could not walk even a few steps without getting short of breath, came to ER for further evaluation and is being admitted to med/surg at [facility] for COPD exacerbation. The patient is complaining of shortness of breath, chest tightness. No complaint of chest pain. No complaint of orthopnea. No complaint of paroxysmal nocturnal dyspnea. No complaint of nausea, vomiting. No complaint of any abdominal pain. No complaint of fever, chills or rigors. She does not have any oxygen at home. She does use mini neb treatments at home. PAST MEDICAL HISTORY 1. History of severe COPD. 2. Hypertension. 3. Diabetes mellitus type 2. 4. Morbid obesity. 5. Former smoker. PAST SURGICAL HISTORY 1. History of bilateral knee replacement. 2. History of hip surgery. 3. History of cardiac cath in the past in 2007. SOCIAL HISTORY The patient is a former smoker, quit five years ago. No history of alcohol use or drug abuse. FAMILY HISTORY Unremarkable. ALLERGIES The patient is allergic to Bactrim, vancomycin, Biaxin and sulfa drugs. HOME MEDICATIONS 1. Atrovent one puff inhaled four times a day. 2. Ventolin two puffs four times a day. 3. Combivent four times a day p.r.n. 4. Singulair 10 mg daily. 5. Proventil nebulizer q.i.d. Unit #: [id number] #: [id number] Patient: JULIANA SANCHEZ 6. Zestril 20 mg daily. 7. Aspirin 81 mg daily. 8. Cartia XT 240 mg twice a day. REVIEW OF SYMPTOM No history of fever, chills or rigors. She does complain of generalized weakness and fatigue. Her main symptoms are respiratory which is chest tightness, shortness of breath, wheezing. No GI symptom of nausea, vomiting, constipation, diarrhea or abdominal pain. No complaint of dizziness or syncopal episode. No complaint of leg swelling. No complaint of any major psyche issue. No complaint of any skin disease at this time. PHYSICAL EXAMINATION GENERAL APPEARANCE: The patient is sitting, seems to be in mild respiratory distress. VITAL SIGNS: Blood pressure is 130/88. Respiratory rate 16. Pulse is 72. Temperature 97.6. Oxygen saturation is 96%. This is on two liters O2. HEENT: Head is normocephalic. Eye movements are normal. Conjunctival congestion is present. The patient does have chronic allergic conjunctivitis. NECK: Supple. No carotid bruit. Trachea is in midline. No thyromegaly. CHEST: Decreased air entry bilateral. Rhonchi is present all throughout bilateral. CARDIOVASCULAR: S1, S2 positive. Regular rhythm. ABDOMEN: Obese. EXTREMITIES: Trace edema. CENTRAL NERVOUS SYSTEM: Patient is awake, alert, oriented x3. No focal neurologic deficit. DIAGNOSTIC STUDIES LABORATORY: WBC 11.3, hemoglobin 14.4, hematocrit 43.4, platelet count 240. Troponin less than 0.05. Sodium 137, potassium 4.2, chloride 103, BUN 26, creatinine 1.0. Liver enzymes are stable. D-dimer was done which is 528, slightly elevated. BNP 17. ABG on two liters showed pH 7.38, pCO2 45.9, pO2 107. Oxygen saturation is 96%. Procalcitonin level is less than 0.5. ASSESSMENT AND PLAN The patient is being admitted to med/surg unit with: 1. Acute hypoxic respiratory failure. 2. Acute exacerbation of chronic obstructive pulmonary disease. 3. Acute bronchitis. 4. Elevated D-dimer. 5. Hypertension. 6. Diabetes mellitus type 2. 7. Morbid obesity. 8. Former smoker. Plan is admit to med/surg unit at [facility]. IV Levaquin 750 mg daily is being started. IV Solu-Medrol 80 mg q.[address] is [address] Andre will be consulted. Accu-Chek a.c. and h.s. with insulin sliding scale. Levemir 10 units subcu daily is being started. Hemoglobin A1C will be done. CT of the chest is being done, PE protocol, to rule out any pulmonary embolism as D-dimer is elevated, although it is unlikely. Bilateral lower extremity venous Doppler is being done to rule out any DVT. Hever sign is negative. Labs will be repeated tomorrow morning. Unit #: [id number] #: [id number] Patient: YOUNG,JULIANA Home medications have been reviewed and adjusted. Plan of care has been discussed with patient. DVT prophylaxis with Lovenox is being done. Dictated by Rufino Hartley TD: 05/30/2017 13:47 JOB #: [id number] HISTORY AND PHYSICAL Page 1 of 1 X Luh Morin MD X HISTORY AND PHYSICAL
--- NOTE | ~2017-05-29 | US84 ---
[id number] [facility] [address] [place], [place] [address] [id number] I MR#: [id number] Acc #: [id number] NAME: SHARMAINE BAZZI : 1950 SEX: F STUDY DATE/TIME: 05/30/2017 14:54 UNIT: C2A ROOM: 226 STUDY DESCRIPTION: US LE Veins Complete Rahul Stdy Attending Physician: Pradip Lipscomb M.D. Ordering Physician: Luh Morin M.D. Primary Care Physician: Luh Morin M.D. MEDICAL IMAGING REPORT This report is preliminary unless electronic signature is present EXAM Bilateral lower extremity venous duplex Doppler. INDICATIONS Shortness of air for 1 day. COMPARISON None available. TECHNIQUE Venous ultrasound examination of both lower extremities was performed using grayscale, spectral Doppler and color flow Doppler imaging. FINDINGS The examination is negative. There is no evidence of deep venous thrombus from the groin to the lower calf bilaterally. Visualized greater saphenous veins are also patent. IMPRESSION Negative examination. No evidence of lower extremity deep venous thrombosis. Dictated by... Vinayak Hargrove M.D. THIS IS AN ELECTRONICALLY VERIFIED REPORT Vinayak Hargrove M.D. at 05/31/2017 3:23 PM ZAYNAB/silvestre TD: 05/31/2017 13:45 JOB #: [id number] MEDICAL IMAGING REPORT Page 1 of 1 COPY
[~2017-05-29 18:23] MED LIST changes: +ALBUTEROL 0.5ML NEB; +ATROVENT HFA12.9 G1 INH; +CARTIA XT240 M1 PO; +COMBIVENT RESPIM4 GM INH; +PATIENT'S PHARMACY; +PREDNISONE10 MG
[2017-05-29 19:40] LABS: BASOPHIL% 0.3 % (0-2.5); EOSINOPHIL% 0.1 % (0.0-7.0); HEMATOCRIT 43.4 % (35.0-45.0); HEMOGLOBIN 14.4 gm/dL (12.0-16.0); LYMPHOCYTE# 1.1 X10e3 (1.0-3.5); LYMPHOCYTE% 9.4 % (17.0-45.0); MEAN CELL VOLUME 94.4 FL (83-96); MEAN CORPUSCULAR HEMOGLOBIN 31.3 PG (28-34); MEAN CORPUSCULAR HGB CONC 33.2 g/dL (30-36); MEAN PLATELET VOLUME 9.6 FL (6.5-11.5); MONOCYTE# 0.1 X10e3 (0-1.0); MONOCYTE% 1.3 % (3.0-12.0); NEUTROPHIL# 10.1 X10e3 (1.5-7.1); NEUTROPHIL% 88.9 % (40-75); PLATELET COUNT 240 X10e3 (140-420); RED CELL DISTRIBUTION WIDTH 14.2 % (11.0-15.5); WHITE BLOOD COUNT 11.3 X10e3 (4.0-10.5)
[2017-05-29 19:47] LABS: DIFF IND NO
[2017-05-29 19:50] LABS: INR 0.9
[2017-05-29 19:58] LABS: POC - CKMB 1.7 ng/mL (0.0-7.9); POC - TROPONIN <0.05 ng/mL (<=0.05)
[2017-05-29 20:03] LABS: ALBUMIN SERUM 3.6 g/dL (3.5-5.0); BILIRUBIN, DIRECT 0.1 mg/dL (0.0-0.2); BILIRUBIN,INDIRECT 0.3 mg/dL (0.0-0.9); BILIRUBIN,TOTAL 0.4 mg/dL (0.2-2.0); GLOM FILT RATE Estimated 68.5 mL/min (>60); POTASSIUM 4.2 mmol/L (3.5-5.1); PROTEIN TOTAL SERUM 6.9 g/dL (6.0-8.3)
[2017-05-30 03:52] LABS: ARTERIAL BLD GAS O2 SATURATION 96.9 % (90.0-100.0); ARTERIAL BLOOD GAS ALLEN TEST NORMAL; ARTERIAL BLOOD GAS ART SITE LEFT RADIAL; ARTERIAL BLOOD GAS CARBOXY HB 0.4 %sat (0.0-9.0); ARTERIAL BLOOD GAS DELIVERY NASAL CANNULA; ARTERIAL BLOOD GAS HCO3 27.1 mmol/L; ARTERIAL BLOOD GAS MET HB 0.9 %sat (0.0-2.0); ARTERIAL BLOOD GAS PCO2 45.9 mmHg (35.0-45.0); ARTERIAL DRAW? YES
[2017-05-31 05:24] LABS: HEMATOCRIT 39.2 % (35.0-45.0); HEMOGLOBIN 12.9 gm/dL (12.0-16.0); MEAN CELL VOLUME 94.5 FL (83-96); MEAN CORPUSCULAR HGB CONC 32.8 g/dL (30-36); MEAN PLATELET VOLUME 9.5 FL (6.5-11.5); RED BLOOD COUNT 4.14 X10e (3.90-5.30); RED CELL DISTRIBUTION WIDTH 14.3 % (11.0-15.5); WHITE BLOOD COUNT 19.2 X10e3 (4.0-10.5)
[2017-05-31 06:25] LABS: BUN/CREATININE RATIO 25.55; CALCIUM SERUM 9.2 mg/dL (8.4-10.2); CREATININE SERUM 0.9 mg/dL (0.6-1.4); GLOM FILT RATE Estimated 77.8 mL/min (>60); POTASSIUM 4.6 mmol/L (3.5-5.1)
[2017-06-01 06:22] LABS: HEMATOCRIT 42.7 % (35.0-45.0); HEMOGLOBIN 13.8 gm/dL (12.0-16.0); MEAN CELL VOLUME 95.1 FL (83-96); MEAN CORPUSCULAR HEMOGLOBIN 30.6 PG (28-34); MEAN CORPUSCULAR HGB CONC 32.2 g/dL (30-36); MEAN PLATELET VOLUME 9.4 FL (6.5-11.5); RED BLOOD COUNT 4.49 X10e (3.90-5.30); RED CELL DISTRIBUTION WIDTH 14.1 % (11.0-15.5); WHITE BLOOD COUNT 21.3 X10e3 (4.0-10.5)
[2017-06-02 06:51] LABS: HEMOGLOBIN 13.2 gm/dL (12.0-16.0); MEAN CELL VOLUME 94.3 FL (83-96); MEAN CORPUSCULAR HGB CONC 32.9 g/dL (30-36); MEAN PLATELET VOLUME 9.4 FL (6.5-11.5); RED BLOOD COUNT 4.25 X10e (3.90-5.30); WHITE BLOOD COUNT 16.8 X10e3 (4.0-10.5)
[2017-06-02 07:22] LABS: BUN/CREATININE RATIO 35.71; CALCIUM SERUM 8.9 mg/dL (8.4-10.2); CREATININE SERUM 0.7 mg/dL (0.6-1.4); GLOM FILT RATE Estimated 105.4 mL/min (>60); POTASSIUM 4.3 mmol/L (3.5-5.1)
[2017-06-02] MEDS ORDERED: PREDNISONE PO (12:51)
[2017-06-02] MEDS ORDERED: ACETAMINOPHEN650 M1 PO (12:52)
[2017-06-02] MEDS ORDERED: DULERA 200 MCG/13 GM INH (12:54)
[2017-06-02] MEDS ORDERED: GLUCOPHAGE500 MG PO (12:55)
== END 2017-06-02 14:23 | disposition home or self-care (01) | DRG 190 ==
LOC: CED 18:23 → CEDOF 22:43 → CED 23:28 → CEDOF 23:28 → C2A 23:58 → CEDOF 23:58 → C2A 06-02 14:23
PROVIDERS: Emergency Medicine; Internal Medicine; Physician Assistant Medical
DX: J44.1 Chronic obstructive pulmonary disease with (acute) exacerbation (principal); J96.01 Acute respiratory failure with hypoxia; J18.9 Pneumonia, unspecified organism; J44.0 Chronic obstructive pulmonary disease with (acute) lower respiratory infection; J20.9 Acute bronchitis, unspecified; Z79.84 Long term (current) use of oral hypoglycemic drugs; E11.65 Type 2 diabetes mellitus with hyperglycemia; I10 Essential (primary) hypertension; Z87.891 Personal history of nicotine dependence; Z88.1 Allergy status to other antibiotic agents; Z88.2 Allergy status to sulfonamides; Z96.653 Presence of artificial knee joint, bilateral; E66.01 Morbid (severe) obesity due to excess calories
CPT/HCPCS: 36415; 36600; 71010; 71275; 80048; 80076; 82308; 82553; 82803; 82947; 83036; 83880; 84484; 85025; 85027; 85379; 85610; 87040; 87899; 93005; 93970; 94640; 94644; 94664; 94760; 96374; 99285; J1650; J1815; J1956; J2920; J2930; Q9967